=== PATIENT | female | born 1990 | race Caucasian/White ===

== ENCOUNTER 2020-08-24 10:46 | Outpatient (REF) | payer OTHER, SELFPAY | END 2020-08-24 10:47 | disposition home or self-care (01) | LOC: HO.LAB 10:46 | PROVIDERS: Visit Provider Internal Medicine | DX: Z20.828 Contact with and (suspected) exposure to other viral communicable diseases (principal) | CPT/HCPCS: C9803; U0003 ==

== ENCOUNTER 2020-09-02 13:39 | Outpatient (REF) | payer OTHER, SELFPAY | END 2020-09-02 13:40 | disposition home or self-care (01) | LOC: HO.LAB 13:39 | PROVIDERS: Visit Provider Internal Medicine | DX: Z20.828 Contact with and (suspected) exposure to other viral communicable diseases (principal) | CPT/HCPCS: C9803; U0003 ==

== ENCOUNTER 2020-09-09 08:09 | Outpatient (REF) | payer OTHER, SELFPAY | END 2020-09-09 08:10 | disposition home or self-care (01) | LOC: HO.LAB 08:09 | PROVIDERS: Visit Provider Internal Medicine | DX: Z20.822 Contact with and (suspected) exposure to COVID-19 (principal) | CPT/HCPCS: 36415; C9803; U0003 ==